=== PATIENT | male | born 1990 | race Caucasian/White ===

== ENCOUNTER 2021-03-20 02:35 | Emergency (ER) | payer MEDICAID, OTHER ==
[~2021-03-20] VITALS: Ht 193 cm; Wt 106.6 kg
[2021-03-20 04:00] VITALS: BP 139/91
[2021-03-20] MEDS ORDERED: ACET-1304 PO (04:29)
[2021-03-20] MEDS ORDERED: PSEU1SYP6 PO (04:29)
[2021-03-20] MEDS ORDERED: PRED20TA2 PO (04:29)
[2021-03-20] MEDS ORDERED: AZITTAB PO (04:29)
== END 2021-03-20 04:32 | disposition home or self-care (01) ==
LOC: ER 02:35
DX: J06.9 Acute upper respiratory infection, unspecified (principal); R50.9 Fever, unspecified; R53.83 Other fatigue
CPT/HCPCS: 71045

== ENCOUNTER 2021-05-15 09:26 | Emergency (ER) | payer MEDICAID ==
[~2021-05-15] VITALS: Ht 193 cm; Wt 103.0 kg
[~2021-05-15 09:26] MED LIST: ACET-1304 PO; AZITTAB PO; PRED20TA2 PO; PSEU1SYP6 PO
[2021-05-15 09:44] VITALS: BP 106/74
[2021-05-15] MEDS ORDERED: AMOX-277 PO (10:18)
[2021-05-15] MEDS ORDERED: PRED20TA2 PO (10:18)
[2021-05-15] MEDS ORDERED: PROM1SOL4 PO (10:18)
== END 2021-05-15 10:29 | disposition home or self-care (01) ==
LOC: ER 09:26
DX: J20.9 Acute bronchitis, unspecified (principal); J03.90 Acute tonsillitis, unspecified; E11.9 Type 2 diabetes mellitus without complications
CPT/HCPCS: 71046

== ENCOUNTER 2023-09-29 10:05 | Emergency (ER) | payer MEDICAID, OTHER ==
[~2023-09-29] VITALS: Ht 193 cm; Wt 109.3 kg
[~2023-09-29 10:05] MED LIST changes: +AMOX875T4 PO; +PROM1SOL4 PO
[2023-09-29 10:50] VITALS: BP 131/78; PULSE 83; RESP 16; TEMP 98.4; O2SAT 98
[2023-09-29 12:52] LABS: COVID19 ANTIGEN SOFIA FIA NEGATIVE (NEGATIVE)
[2023-09-29 12:53] LABS: Rapid Influenza A Negative (Negative); Rapid Influenza B Negative (Negative)
[2023-09-29] MEDS ORDERED: ALBU108A5 IN (13:25)
[2023-09-29] MEDS ORDERED: PROM1SOL4 PO (13:25)
[2023-09-29] MEDS ORDERED: IBUP-1455 PO (13:25)
== END 2023-09-29 13:36 | disposition home or self-care (01) ==
LOC: ER 10:14
DX: J20.9 Acute bronchitis, unspecified (principal); E11.9 Type 2 diabetes mellitus without complications; Z79.1 Long term (current) use of non-steroidal anti-inflammatories (NSAID); Z79.899 Other long term (current) drug therapy; Z79.52 Long term (current) use of systemic steroids; Z20.822 Contact with and (suspected) exposure to COVID-19
CPT/HCPCS: 36415; 87426; 87804